=== PATIENT | male | born 1975 | race Caucasian/White ===

== ENCOUNTER 2017-05-30 22:11 | Emergency (ER) | payer SELFPAY ==
[2017-05-30 22:29] VITALS: BP 124/83
--- NOTE | 2017-05-30 23:06 | EDM.PDOC ---
ED HPI GENERAL MEDICAL PROBLEM - General Chief Complaint: ENT Problem Stated Complaint: TOOTH PAIN Time Seen by Provider: 05/30/17 22:48 Source of Information: Reports: Patient History Limitations: Reports: No Limitations - History of Present Illness INITIAL COMMENTS - FREE TEXT/NARRATIVE: Patient is a 41-year-old male presents the ED complaining of left lower tooth pain. This is a molar tooth that has had extensive fillings placed. 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 Started experiencing pain to this tooth increased with chewing on the affected side or drinking hot/cold fluids. Denies any swelling to the gumline. No recent trauma to his tooth. Tooth is intact with filling in place. 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 [No Known Home Meds] 05/30/17 [History] Past Medical History - Past Health History Medical/Surgical History: Denies Medical/Surgical History Social & Family History - Family History Family Medical History: Noncontributory - Tobacco Use Smoking Status *Q: Unknown Ever Smoked ED ROS ENT - Review of Systems Review Of Systems: See Below Constitutional: Denies: Fever, Decreased Appetite HEENT: Reports: Dental Pain. Denies: Ear Pain, Rhinitis, Sinus Problem, Throat Pain, Throat Swelling Neurological: Denies: Headache ED EXAM, ENT - Physical Exam Exam: See Below Exam Limited By: No Limitations General Appearance: Alert, WD/WN, No Apparent Distress Ears: Hearing Grossly Normal Nose: Normal Inspection, Normal Mucousa, No Blood Mouth/Throat: Dental Pain (Left lower molar: Extensive dental work/filling present. Pain with palpation with tongue depressor. No gumline swelling. Tooth is intact including with filling. No Infection present.) Course - Vital Signs Last Recorded V/S: Last Vital Signs Temp 98.5 F 05/30/17 22:27 Pulse 77 05/30/17 22:27 Resp 18 05/30/17 22:27 BP 124/83 05/30/17 22:27 Pulse Ox 99 05/30/17 22:27 - Re-Assessments/Exams Free Text/Narrative Re-Assessment/Exam: Performed an inferior alveolar dental block to the left side with immediate pain relief. Will discharge patient home with prescription for tramadol and list of local dentist. Departure - Departure Time of Disposition: 23:02 Disposition: Home, Self-Care 01 Condition: Good Clinical Impression: Pain due to dental caries - Discharge Information Referrals: PCP,None [Primary Care Provider] - Forms: ED Department Discharge, ED Return to Work/School Form Additional Instructions: Take ibuprofen 600mg every 6 hrs and tylenol 650mg every 6 hrs in alternating fashion for pain. Refrain from chewing food on the affected side and or drinking excessively hot or cold liquids. Call a local dentist tomorrow to schedule an appointment for definitive treatment. Take tramadol 1 tablet every 6 hours as needed for severe pain. For further pain management see a PCP. Return to the ED for any new or worsening symptoms.
== END 2017-05-30 23:18 | disposition home or self-care (01) ==
LOC: JD.ED 22:11
DX: K02.9 Dental caries, unspecified (principal); Z88.5 Allergy status to narcotic agent; Z88.6 Allergy status to analgesic agent
CPT/HCPCS: 64400; 99282; 99282-25

== ENCOUNTER 2017-07-11 08:59 | Emergency (ER) | payer SELFPAY ==
[2017-07-11 09:10] VITALS: BP 126/91
--- NOTE | 2017-07-11 09:28 | EDM.PDOC ---
ED HPI GENERAL MEDICAL PROBLEM - General Chief Complaint: ENT Problem Stated Complaint: LEFT SIDE DENTAL ISSUE Time Seen by Provider: 07/11/17 09:23 Source of Information: Reports: Patient History Limitations: Reports: No Limitations - History of Present Illness INITIAL COMMENTS - FREE TEXT/NARRATIVE: 41-year-old male presents the ED with a pain in his left lower mandible with swelling. He had the tooth extracted i.e. first molar in [place] where he resides. 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 The swelling of his left carlton-face he states is no worse than it has been. Is quite obvious over the area of the extraction. There is some concern the patient's behalf that there was a lot of trouble getting the tooth extracted and question whether or not one of the roots was left behind. The panoramic films were done afterwards to see if there was residual root in the bone. He is on Amoxil 500 mg 3 times a day for the last 5 days. Onset: Gradual Onset Date: 07/07/17 (In [place] last week.) Duration: Day(s): Quality: Reports: Ache, Throbbing Severity: Moderate Improves with: Reports: None Worsens with: Reports: Other Context: Reports: Other (Pain left lower mandible with swelling post extraction of left lower first molar tooth last week. Rarely the tooth broke off and was difficult to extract questionable whether there is residual root within the wound.). 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, NSAIDS (Motrin) Left Lower Oral/Mouth Pain Score (Numeric/FACES): 6 - Related Data Allergies Allergy/AdvReac Type Severity Reaction Status Date / Time codeine Allergy Stomach Verified 07/11/17 09:07 Upset ketorolac [From Toradol] Allergy Hives Verified 07/11/17 09:07 Home Meds: Home Meds Amoxicillin 500 mg PO QID 07/11/17 [History] Clindamycin HCl 300 mg PO TID #21 capsule 07/11/17 [Rx] oxyCODONE HCl/Acetaminophen [Percocet 5-325 mg Tablet] 1 - 2 each PO Q4H PRN # 20 tablet 07/11/17 [Rx] Past Medical History - Past Health History Medical/Surgical History: Denies Medical/Surgical History - Past Surgical History GI Surgical History: Reports: Other (See Below) Other GI Surgeries/Procedures: hernia repair Social & Family History - Family History Family Medical History: Noncontributory - Tobacco Use Smoking Status *Q: Never Smoker Second Hand Smoke Exposure: No - Caffeine Use Caffeine Use: Reports: Coffee - Recreational Drug Use Recreational Drug Use: No - Living Situation & Occupation Occupation: Employed ED ROS ENT - Review of Systems Review Of Systems: See Below Constitutional: Reports: Decreased Appetite. Denies: Fever, Chills, Malaise, Weakness, Fatigue, Weight Loss HEENT: Reports: Dental Pain Respiratory: Reports: No Symptoms (See history of present illness) Cardiovascular: Reports: No Symptoms Endocrine: Reports: No Symptoms GI/Abdominal: Reports: No Symptoms : Reports: No Symptoms Musculoskeletal: Reports: Hand Pain Skin: Reports: No Symptoms Neurological: Reports: No Symptoms Psychiatric: Reports: No Symptoms Hematologic/Lymphatic: Reports: No Symptoms ED EXAM, ENT - Physical Exam Exam: See Below Exam Limited By: No Limitations General Appearance: Alert, WD/WN, No Apparent Distress Eye Exam: Bilateral Eye: Normal Inspection Mouth/Throat: Dental Pain (His dental pain at the site of extraction of the first left lower molar tooth. There is a dry socket I believe with necrotic tissue of the crater. The question is whether or not there may be residual bone or root of the tooth left in the wound according to the patient. I do not have access to panoramic x-rays in the ED and CT is currently down.), Other (Patient is obvious swelling of the left lateral mandible adjacent to the extraction site of the left lower first molar tooth.) Course - Vital Signs Last Recorded V/S: Last Vital Signs Temp 36.9 C 07/11/17 09:07 Pulse 72 07/11/17 09:07 Resp 16 07/11/17 09:07 BP 126/91 H 07/11/17 09:07 Pulse Ox 100 07/11/17 09:07 - Radiology Interpretation Free Text/Narrative:: 40-year-old male presents the ED with dental pain at extraction site of left lower first molar tooth done 5 days ago in [place]. 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 He has having increased pain and I suspect this is secondary to a dry socket. However there is some suggestion that there was a lot of difficulty removing the tooth itself and part of it broke off. Question is whether not there is residual root of the tooth left in the wound that is keeping it from healing. Clinically the wound is open and I suspect dry socket with necrotic tissue in a circumferential fashion. I spoke with [facility] but the dentist was not yet in. I have left the patient's phone number with him and they will give him a call hopefully later today for a quick panoramic view x -ray to see if there is any residual tissue there and treat his dry socket. I placed him on clindamycin 3 mg 3 times daily in addition to his amoxicillin for 7 days. Percocet tabs 01/12/25 20 were provided for pain relief. Departure - Departure Time of Disposition: 09:28 Disposition: Home, Self-Care 01 Condition: Fair Clinical Impression: Pain, dental - Discharge Information Prescriptions: Clindamycin HCl 300 mg PO TID #21 capsule oxyCODONE HCl/Acetaminophen [Percocet 5-325 mg Tablet] 1 - 2 each PO Q4H PRN # 20 tablet PRN Reason: pain relief. Instructions: Dental Dry Socket Referrals: PCP,None [Primary Care Provider] - Forms: ED Department Discharge Additional Instructions: Evaluation in the emergency room today in regards to persistent pain and swelling left lower mandible where you had a first molar extracted 4 days ago. The question is whether or not there is a residual broken tooth or root in the wound. Suspect dry socket as cause of the pain. Ideally you need a panoramic x- ray of this area performed by dentist to make sure there is no residual broken off root of tooth in the wound. Secondly there is still significant swelling of the soft tissues overlying the mandible in this area. Continue amoxicillin 500 mg 3 times daily and add clindamycin 300 mg 3 times daily for the next week to prevent any further infection. I put a call phone call into [facility] and tentatively they will call you this morning with a time to come in for a panoramic x-ray. This will define whether further dental intervention is required or just packing of the dry socket.
== END 2017-07-11 09:37 | disposition home or self-care (01) ==
LOC: JD.ED 08:59
DX: K08.89 Other specified disorders of teeth and supporting structures (principal); Z88.6 Allergy status to analgesic agent; Z88.5 Allergy status to narcotic agent
CPT/HCPCS: 99283